=== PATIENT | female | born 1955 | race African-American/Black ===

== ENCOUNTER 2017-08-10 05:48 | Day surgery (SDC) | payer OTHER ==
[2017-08-10] MEDS ORDERED: SOD CHLORIDE 0.9% 1,000 ML IV (06:00)
[2017-08-10] MEDS ORDERED: CEFAZOLIN 2 GM/50 ML (PMX) 50 ML IVPB (06:00)
[2017-08-10] MEDS ORDERED: CEFAZOLIN 1 GM INJ (07:00)
[2017-08-10] MEDS ORDERED: ONDANSETRON 4 MG INJ (07:00)
[2017-08-10] MEDS ORDERED: SUGAMMADEX SODIUM 200 MG/2 ML VIAL IV (07:00)
[2017-08-10] MEDS ORDERED: METOCLOPRAMIDE 10 MG INJ (07:00)
[2017-08-10] MEDS ORDERED: MIDAZOLAM 1 MG/ML 2 ML INJ (08:32)
[2017-08-10] MEDS ORDERED: FENTAnyl 50 MCG/ML VIAL (08:32)
[2017-08-10] MEDS ORDERED: PROPOFOL 20 ML (08:33)
[2017-08-10] MEDS ORDERED: LIDOCAINE 100 MG SYRINGE (08:41)
[2017-08-10] MEDS ORDERED: SUCCINYLCHOLINE CHLORIDE 100 MG/5 ML SYG IV (08:41)
[2017-08-10] MEDS ORDERED: ROCURONIUM 50 MG INJ (08:41)
[2017-08-10] MEDS: BUPIVACAINE 0.25% (MPF) 30 ML INJ (09:07)
[2017-08-10] MEDS ORDERED: hydrALAzine 20 MG INJ (09:28)
[2017-08-10] MEDS: POLYMYXIN/BACITRACIN 1L IRRIG (09:29)
[2017-08-10] MEDS ORDERED: LABETALOL HCL 20MG INJ IV (09:30)
[2017-08-10] MEDS ORDERED: ONDANSETRON 4 MG INJ IV (09:30)
[2017-08-10] MEDS ORDERED: DIPHENHYDRAMINE 50 MG INJ IV (09:30)
[2017-08-10] MEDS ORDERED: KETOROLAC 30 MG INJ IV (09:30)
[2017-08-10] MEDS ORDERED: FENTAnyl 50 MCG/ML VIAL IV ×2 (09:30)
[2017-08-10] MEDS ORDERED: KETOROLAC 15 MG INJ IV (09:30)
[2017-08-10] MEDS ORDERED: METOCLOPRAMIDE 10 MG INJ IV (09:30)
[2017-08-10] MEDS ORDERED: MEPERIDINE 25 MG INJ IV (09:30)
[2017-08-10] MEDS ORDERED: HYDROmorphONE (0.2 MG/ML) 10ML SYG IV ×2 (09:30)
[2017-08-10] MEDS ORDERED: HYDROCODONE/APAP (5/325) TAB PO (09:30)
[2017-08-10] MEDS: hydrALAzine 20 MG INJ IV (09:35)
== END 2017-08-10 11:10 | disposition home or self-care (01) ==
LOC: SDS 05:48
DX: K43.6 Other and unspecified ventral hernia with obstruction, without gangrene (principal)
CPT/HCPCS: 49653; 82962